=== PATIENT | male | born 1950 ===

== ENCOUNTER 2025-05-01 09:46 | Outpatient (AMB) | payer MEDICARE, SELFPAY ==
--- NOTE | 2025-05-01 09:51 | A.PHYSOV ---
Vital Signs 05/01/25 09:52 Height 5 ft 10 in Weight 195 lb BMI 28.0 Intake Visit Reasons: NPV TIRNITY REF SPINAL STENOSIS OF LUMBAR REGION Intake Note: Patient is a 75 year old male here for a new patient visit for spinal stenosis of lumbar region. Had xray at his chiropractic office. Metal Cutter Required: No Allergies No Known Allergies Allergy (Verified 05/01/25 09:55) HPI Comments Details: History of Present Illness The patient is a 75-year-old male presenting with spinal stenosis and associated musculoskeletal issues. I do believe he is mixing up spinal stenosis and scoliosis. He reports a history of spinal stenosis diagnosed after an x-ray revealed a twisted spine, attributed to altered gait following knee surgery. The patient denies experiencing back pain but reports nerve pain in the buttock, which may be related to spinal issues. The patient underwent a second knee replacement surgery in November, following a previous replacement four years ago that resulted in improper alignment. This misalignment caused muscle issues due to altered gait over three years. Post-surgery, the patient experiences knee pain and swelling, particularly after prolonged walking, but reports gradual improvement. The patient has a leg length discrepancy, with the right leg being shorter than the left, which does not cause significant discomfort. 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 The patient engages in regular physical activity, including gym workouts and stretching exercises, which he finds beneficial. Patient has been seeing a chiropractor twice a week for over 6 weeks without relief of his symptoms. As a pillow today at 12/27. I reviewed their bronchodilators no prior consultation. I reviewed the referring provider's no prior to consultation. Pain Description - Onset: Pain primarily post-knee replacement surgery. - Quality: Described as a charley horse in the thigh and buttock area. - Location: Primarily in the knee, radiating to the thigh and buttock. - Exacerbating factors: Prolonged walking and certain movements. - Relieving factors: Stretching exercises and rest. Results - Imaging: X-ray showed spinal stenosis and scoliosis. - Imaging: X-ray confirmed mild arthritis in the hip. The images were reviewed by me and I agree with the radiology report. [facility], [facility] Surgical History (Updated 05/01/25 @ 10:00 by Karma Vasquez MA) H/O shoulder surgery (Unknown) H/O: knee surgery (~11/2024) H/O: knee surgery (~2020) Social History (Updated 04/24/25 @ 15:42 by Karma Vasquez MA) Alcohol intake: current Patient Tobacco Use Status: Former Tobacco user Use of substances other than those prescribed or required for medical reasons: Unknown Review of Systems Narrative Review of Systems - Musculoskeletal: Reports knee pain and swelling post-surgery. Denies back pain. - Neurological: Reports nerve pain in the buttock. Denies numbness except in a specific area related to previous surgery. - General: Reports improvement in pain and function with exercise. Physical Exam Exam Exam: Physical Exam Lumbar Spine: Examination of his lumbar spine, there is no visible swelling or deformity. He is tender to lower lumbar facets. He is otherwise nontender. Full range of motion of his lumbar spine. He does have an increase in pain with facet loading particularly in his left thigh. Special Tests: Lhermittes sign was negative Heel Toe walk is normal Left straight leg raise: Positive left Right straight leg raise: Negative Special tests Herson test is negative Ganslen's test is negative SI Joint compression test negative Cynthia test negative Piriformis stretch is negative Lower Extremities: Full range of motion bilateral lower extremities. No calf pain or edema. Neuro: Sensation: Intact to lower extremities bilaterally Strength L2 (Psoas): 5/5 on the left and 5/5 on the right. L3 (Quads): 5/5 on the left and 5/5 on the right. L4 (Ant tibialis): 5/5 on the left and 5/5 on the right. L5 (EHL) 5/5 on the left and 5/5 on the right. S1 (Gastroc): 5/5 on the left and 5/5 on the right. DTR L4: (Patellar) Left 0 Right 0 S1: (Achilles) Left 1 Right 1 Babinski Downgoing No pathologic clonus. No involuntary movement. Vital Signs: BMI result Body Mass Index 28.0 Assessment & Plan Assessment & Plan (1) Lumbar radiculopathy: Code(s): M54.16 - Radiculopathy, lumbar region Category: Medical (2) Lumbar spondylosis: Code(s): M47.816 - Spondylosis without myelopathy or radiculopathy, lumbar region Category: Medical Plan Pain Management - Affect: Pain does not significantly impact mood or psychological wellbeing. - Analgesia: No regular pain medication use; occasional use of Advil if needed. - Adverse Effects: No adverse effects from pain medications reported. - Activities of Daily Living: Pain affects prolonged walking but is improving with exercise. - Aberrant Drug Related Behaviors: No signs of medication misuse or abuse. Plan Mr. Dickerson is a 75-year-old male seen in consultation today or lumbar radiculitis the left lower extremity. 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 He has also been using turmeric to decrease inflammation without relief his symptoms. At this point he has failed conservative treatment. I recommend open MRI of his lumbar spine as we are considering epidural injection versus surgery. Follow-up post MRI. Patient will continue his home exercise plan and medications as prescribed. We discussed the benefits of proper nutrition and exercise to maintain a healthy body weight to improve longevity and function. We also discussed the benefits of proper lifting techniques, core strengthening and proper posture. Thank you for allowing me to participate in the care of your patient. Orders: Orders MR lumbar spine wo con Today M51.16 - Intervertebral disc disorders with radiculopathy, lumbar region Coding Level of Care Code Tele New Pt Level 4 (06023) Diagnoses Lumbar radiculopathy M54.16 Lumbar spondylosis M47.816
[2025-05-01 09:52] VITALS: BMI 28.0
--- OUTSIDE RECORDS SUMMARY | 2025-05-01 11:08 | XMS_ITS | Clinical Summary ---
Author Organization [place] [address] [facility] Building Address [address] [place], [place] [address] [address] Phone Care Team Providers Care It Portfolio Manager Name Role Phone Iva Chavez NP Primary Care Provider [phone] Allergies No known active allergies Medications TURMERIC ORAL Take by mouth 2 (two) times a day. Active meloxicam (MOBIC) 15 mg tablet Take 1 tablet (15 mg total) by mouth 1 (one) time each day if needed for mild pain for up to 30 doses. 30 each 12/19/2024 10:13 AM EDT 5 Active Additional Information Patient not taking.Reason: Other, Reported on 04/02/2025 methocarbamoL (ROBAXIN) 750 mg tablet Take 1 tablet (750 mg total) by mouth every 6 (six) hours if needed for muscle spasms for up to 56 doses. 56 tablet 12/19/2024 10:13 AM EDT 5 Active Additional Information Patient not taking.Reason: Other, Reported on 04/02/2025 oxyCODONE (ROXICODONE) 5 mg immediate release tabletIndicati ons:S/P total knee arthroplasty, left Take 1 tablet (5 mg total) by mouth every 4 (four) hours if needed (Pain scale 1-3). Max Daily Amount: 30 mg 15 tablet 12/19/2024 10:13 AM EDT 5 Active Additional Information Patient not taking.Reason: Other, Reported on 04/02/2025 cyanocobalamin (VITAMIN B-12) 1,000 mcg tablet Take 1 tablet (1,000 mcg total) by mouth 1 (one) time each day. Active ALPRAZolam (XANAX) 0.5 mg tablet Take 1 tablet (0.5 mg total) by mouth 2 (two) times a day if needed for anxiety. Max Daily Amount: 1 mg 40 tablet 2 5 Active ezetimibe (ZETIA) 10 mg tablet Take 1 tablet (10 mg total) by mouth every other day. 15 each 5 5 10/07/19 26 Active ALPRAZolam (XANAX) 0.5 mg tablet Take 1 tablet (0.5 mg total) by mouth 2 (two) times a day if needed for anxiety. Max Daily Amount: 1 mg 40 tablet 2 5 04/02/20 25 Discontin ued(Reord er) Active Problems Problem Noted Date Diagnosed Date Left knee pain 12/14/2024 Hypercholesterolemia 09/26/2024 Anxiety disorder 08/02/2022 Encounters Date Type Department Care Team Description 04/09/2025 Telephone Internal Medicine - [address] [place] [address] Iva Chavez NP 04/04/2025 Results Follow-Up Internal Medicine - [address] [place] [phone] Barbara Martinez MA 04/02/2025 1:00 PM EDT Office Visit Internal Medicine - [address] [place] [address] Iva Chavez NP Anxiety disorder, unspecified type (Primary Dx); Hypercholesterolemia ; Immunization due; Spinal stenosis of lumbar region, unspecified whether neurogenic claudication present; Thrombocytosis; Long-term use of high-risk medication; Vitamin D deficiency; Thrombocytopenia (CMS/HCC V24) from Last 3 Months Immunizations Immunization Administration Dates Next Due Influenza trivalent, 0.5mL ( Fluad) 65yo and older 04/02/2025,03/28/2024,03/24/2022,2020,05/12/2018 Influenza trivalent, with preservative (Fluzone; Afluria) 6mo and older 04/23/2010 Influenza, Unspecified 03/20/2023 Surgical History Surgery Date Site/Laterality Comments KNEE SURGERY 04/20/2022 - 05/19/2022 Left L TKA APPENDECTOMY HERNIA REPAIR X5 ROTATOR CUFF REPAIR Bilateral TOTAL SHOULDER ARTHROPLASTY Left KNEE ARTHROSCOPY Bilateral COLONOSCOPY KNEE SURGERY 11/18/2024 - 12/17/2024 Left second knee replacement CARPAL TUNNEL RELEASE 06/20/2024 - 06/19/2025 Left Medical History Medical History Date Comments Anxiety disorder DX:Anxiety diso rder Hep C w/o coma, chronic (CMS/HCC V24, CMS/HCC V2 8) CURED 2018 WITH PO TX Thrombocytopenia (CMS/HCC V24) D X:Thrombocytopenia (HCC) Diverticulosis DX:Diverticulosi s Lyme disease DX:Lyme disease Babesiosis HX Hyperlipidemia DIET-CONTROLLED Peripheral neuropathy LEFT LEG History of blood transfusion 2018 X2 D/T BABESIOSIS Family History Medical History Relation Name Comments No Known Problems Brother 1 No Known Problems Brother 2 No Known Problems Brother 3 Heart failure Father Stroke Father Heart failure Mother Relation Name Status Comments Brother 1 Alive Brother 2 Alive Brother 3 Alive Father Mother Social History Tobacco Use Types Packs/Day Years Used Date Smoking Tobacco: Former Cigarettes 0.5 1 Smokeless Tobacco: Never Tobacco Cessation:Counseling Given: Not Answered Alcohol Use Standard Drinks/Week Comments Yes 21 (1 standard drink = 0.6 oz pu re alcohol) couple beers a day Interpersonal Safety Answer Date Record ed Physical Abuse Unrecognized value 12/17/2024 Verbal Abuse Unrecognized value 12/17/2024 Sex and Gender Information Value Date Recorded Sex Assigned at Male 12/17/2024 5:53 AM EDT Legal Sex Male 8:55 PM EST Gender Identity Male 12/17/2024 5:53 AM EDT Sexual Orientation Choose not to disclose 2024 5:53 AM EDT Obstetrics History Last Filed Vital Signs Vital Sign Reading Time Taken Comments Blood Pressure 138/88 04/02/2025 1:19 PM EDT Pulse 74 04/02/2025 1:19 PM EDT Temperature 36.7 C (98.1 F) 12/19/2024 7:25 AM EDT Respiratory Rate 16 12/19/2024 7:25 AM EDT Oxygen Saturation 95% 12/19/2024 7:25 AM EDT Inhaled Oxygen Concentration - - Weight 89.6 kg (197 lb 9.6 oz) 04/02/2025 1:19 P M EDT Height 177.8 cm (5' 10 ) 04/02/2025 1:19 PM EDT Body Mass Index 28.35 04/02/2025 1:19 PM EDT Plan of Treatment Upcoming Encounters Date Type Department Care Team (Late st Contact Info) Description 10/07/2025 1:30 PM EDT [facility] [address] [place], [place] [phone] Iva Chavez, JOSH [address] [place] [address] Health Maintenance Due Date Last Done Comments Medicare Annual Wellness Visit 07/15/2023 Social Influencers of Health Screening 07/15/2023 Depression Screening 06/20/2024 DTaP,Tdap,and Td Vaccines (1 - Tdap) 09/26/2025 Postponed from 1970 (Patient Refused) Falls Risk Assessment 12/19/2025 12/19/2024 Cholesterol Screening (Lipid Panel) 04/04/2030 04/04/2025, 09/26/2024, 08/09/2024, Additional history exists Colorectal Cancer Screening: Colonoscopy 12/19/2034 12/19/2024, 09/01/2016 COVID-19 Vaccine Discontinued 05/21/2021, 10/2020, 09/24/2020 Influenza Vaccine Completed 04/02/2025, , 04/25/2023, Additional history exists Abdominal Aortic Aneurysm (AAA) Screen Discontinued HIB Vaccines Aged Out No longer eligi ble based on patient's age to complete this topic HPV Vaccines Aged Out No longer eligi ble based on patient's age to complete this topic Hepatitis A Vaccines Discontinued Hepatitis B Vaccines Discontinued Hepatitis C Screening Discontinued IPV Vaccines Aged Out No longer eligi ble based on patient's age to complete this topic MMR Vaccines Aged Out No longer eligi ble based on patient's age to complete this topic Meningococcal ACWY Vaccine Aged Out N o longer eligible based on patient's age to complete this topic Meningococcal B Vaccine Aged Out No l onger eligible based on patient's age to complete this topic Pneumococcal Vaccine: 50+ Years Discontinued RSV Immunization Adult Patients Discontinued RSV Immunization Patients Under 20 months Aged Out No longer eligible based on patient's age to complete this topic Varicella Vaccines Aged Out No longer eligible based on patient's age to complete this topic Zoster Vaccines Discontinued Medical Devices Implanted Type Area Service Or Work Dispatcher Chief Device Identifier Shelf Expiration Date Model / Serial / Lot Cement Bone Surg Simplex Radiopq - [id number] Implanted:Qty : 1 on 12/17/2024 by Seng Alfaro MD at [facility] Bone Cement Left: Knee [employer] [id number] 04/19/2027 6190-06-20 0 / / [id number] Cement Bone Surg Simplex Radiopq - [id number] Implanted:Qty : 1 on 12/17/2024 by Seng Alfaro MD at [facility] Bone Cement Left: Knee [employer] [id number] 04/19/2027 6190-06-20 0 / / [id number] Cement Bone Surg Simplex Radiopq - [id number] Implanted:Qty : 1 on 12/17/2024 by Seng Alfaro MD at [facility] Bone Cement Left: Knee [employer] [id number] 04/19/2027 6190-06-20 0 / / [id number] Cement Bone Surg Simplex Radiopq - [id number] Implanted:Qty : 1 on 12/17/2024 by Seng Alfaro MD at [facility] Bone Cement Left: Knee [employer] 10/17/2026 6191 0 / / [id number] Knee Aug L/Rl Sz6 10mm - [id number] Implanted:Qty : 1 on 12/17/2024 by Seng Alfaro MD at [facility] Joints Knee Left: Knee [employer] [id number] 08/17/2025 5546-A-60 1 / / [id number] Knee Insrt Tib Baseplate Sz 6 - [id number] Implanted:Qty : 1 on 12/17/2024 by Seng Alfaro MD at [facility] Joints Knee Left: Knee [employer] [id number] 04/06/2029 5521-B-60 0 / / [id number] Knee Sys Total Ofst 6mm - [id number] Implanted:Qty : 1 on 12/17/2024 by Seng Alfaro MD at [facility] Joints Knee Left: Knee [employer] [id number] 05/21/2026 5570-S-06 0 / / [id number] Knee Stm Prsft 01y404 - [id number] Implanted:Qty : 1 on 12/17/2024 by Seng Alfaro MD at [facility] Joints Knee Left: Knee [employer] [id number] 04/14/2027 5566-S-01 4 / / [id number] Knee Fem Post Sz 5 5mm - [id number] Implanted:Qty : 1 on 12/17/2024 by Seng Alfaro MD at [facility] Knee Left: Knee [employer] [id number] 08/14/2029 5543-A-50 0 / / [id number] Knee Fem Post Sz 5 5mm - [id number] Implanted:Qty : 1 on 12/17/2024 by Seng Alfaro MD at [facility] Joints Knee Left: Knee [employer] [id number] 08/14/2029 5543-A-50 0 / / [id number] Knee Fem Dist Aug 15mm Sz 5 Lt - [id number] Implanted:Qty : 1 on 12/17/2024 by Seng Alfaro MD at [facility] Joints Knee Left: Knee [employer] [id number] 07/19/2027 5542-A-50 1 / / [id number] Knee Fem Dist Aug 15mm Sz 5 Lt - [id number] Implanted:Qty : 1 on 12/17/2024 by Seng Alfaro MD at [facility] Joints Knee Left: Knee [employer] [id number] 03/16/2027 5542-A-50 1 / / [id number] Knee Fem Cmpnt Sz 5 Lt - [id number] Implanted:Qty : 1 on 12/17/2024 by Seng Alfaro MD at [facility] Joints Knee Left: Knee [employer] [id number] 10/17/2028 5512-F-50 1 / / [id number] Knee Tib Insrt Ts+ X3 16mm Sz6 - [id number] Implanted:Qty : 1 on 12/17/2024 by Seng Alfaro MD at [facility] Joints Knee Left: Knee [employer] [id number] 04/05/2027 5537-G-61 6 / / [id number] Knee Stm Prsft 63z246 - [id number] Implanted:Qty : 1 on 12/17/2024 by Seng Alfaro MD at [facility] Knee Left: Knee [employer] [id number] 12/05/2027 5566-S-01 0 / / [id number] Knee Aug R/Ll Sz6 10mm - [id number] Implanted:Qty : 1 on 12/17/2024 by Seng Alfaro MD at [facility] [employer]s Knee Left: Knee [employer] [id number] 07/20/2027 5546-A-60 2 / / [id number] Explanted Type Area Service Or Work Dispatcher Chief Device Identifier Shelf Expiration Date Model / Serial / Lot Femur Explanted:Qty: 1 on 12/17/2024 by Seng Alfaro MD at [facility] Left: Knee [employer] XXXXXXX / [id number] / [id number] Tibia Explanted:Qty: 1 on 12/17/2024 by Seng Alfaro MD at [facility] Left: Knee [employer] XXXXX / [id number] / [id number] Tibial Insert Explanted:Qty: 1 on 12/17/2024 by Seng Alfaro MD at [facility] Left: Knee [employer] XXXXXX / [id number] / [id number] Procedures Procedure Name Priority Date/Time Associated Diagnosis Comments CBC WITH AUTO DIFFERENTIAL Routine 04/04/2025 9:07 AM EDT Thrombocytosis CBC AND DIFFERENTIAL Routine 04/04/2025 9:07 AM EDT Thrombocytosis DRUG ABUSE SCREEN 8A PANEL, URINE Routine 04/04/2025 9:07 AM EDT Long-term use of high-risk medication LIPID PANEL WITH REFLEX TO DIRECT LDL Routine 04/04/2025 9:07 AM EDT Hypercholesterolemi a VITAMIN D 25 HYDROXY Routine 04/04/2025 9:07 AM EDT Vitamin D deficiency VITAMIN B12 Routine 04/04/2025 9:07 AM EDT Thrombocytosis EXTERNAL COLONOSCOPY REPORT Routine 12/19/2024 11:17 AM EDT from Last 3 Months or Most Recently Relevant to Health Maintenance Results * (ABNORMAL) Lipid panel with reflex to direct LDL (04/04/2025 9:07 AM EDT) Cholesterol 217(H) 0 - 200 mg/dL LAB CHEMISTRY METHOD 04/04/2025 12:55 PM [facility] Triglycerides 72 0 - 150 mg/dL LAB CHEMISTRY METHOD 04/04/2025 12:55 PM [facility] HDL 69 >=40 mg/dL LAB CHEMISTRY METHOD 04/04/2025 12:55 PM [facility] LDL Calculated 134(H) 0 - 100 mg/dL LAB CHEMISTRY METHOD 04/04/2025 12:55 PM [facility] Comment:Estimated LDL Calcul ated using equation: Total cholesterol - HDL cholesterol - (Triglycerides/5) VLDL Cholesterol Jacob 14.4 mg/dL LAB CHEMISTRY METHOD 04/04/2025 12:55 PM [facility] Non HDL Chol. (LDL+VLDL) 148(H) <145 mg/dL LAB CHEMISTRY METHOD 04/04/2025 12:55 PM [facility] Chol/HDL Ratio 3.1 0.0 - 4.4 LAB CHEMISTRY METHOD 04/04/2025 12:55 PM [facility] Blood Venous blood specimen / Unknown Venipuncture / Unknown 04/04/2025 9:07 AM EDT 04/04/2025 9:07 AM EDT Iva Chavez TENNIS PLAYER LAB BLOOD ORDERABLES Final Resu lt [facility] [address] [place] [address], * (ABNORMAL) Drug abuse screen 8a panel, urine (04/04/2025 9:07 AM EDT) Amphetamine Screen, Ur Negative Negative LAB CHEMISTRY METHOD 3:[address] [facility] Comment:Certain OTC medicati ons containing ephedrine, phenylephrine, pseudoephedrine and phenylpropanolamine can cause false positive results. Barbiturate Screen, Ur Negative Negative LAB CHEMISTRY METHOD 5 3:[address] [facility] Benzodiazepine Screen, Ur Positive(A ) Negative LAB CHEMISTRY METHOD 5 3:[address] [facility] Cocaine Screen, Ur Negative Negative LAB CHEMISTRY METHOD 5 3:[address] [facility] Opiate Screen, Ur Negative Negative LAB CHEMISTRY METHOD 5 3:[address] [facility] Cannabinoid (THC) Screen, Ur Positive(A ) Negative LAB CHEMISTRY METHOD 5 3:[address] [facility] Comment:Specimens from patie nts taking pantoprazole sodium (Protonix) have been shown to produce false positive results. Oxycodone Screen, Ur Negative Negative LAB CHEMISTRY METHOD 5 3:[address] [facility] Fentanyl, Ur Negative Negative LAB CHEMISTRY METHOD 5 3:[address] [facility] Urine Urine specimen obtained by clean catch procedure / Unknown Non-blood Collection / Unknown 04/04/2025 9:07 AM EDT 04/04/2025 9:[address] [facility] - 04/04/2025 3:59 PM EDT Assay cutoffs: Amphetamines 1000 ng/mL Barbiturates 200 ng/mL Benzodiazepines 200 ng/mL Cocaine 300 ng/mL Fentanyl 1 ng/mL Opiates 300 ng/mL Oxycodone 100 ng/mL THC 50 ng/mL Semi-quantitative assay for screening purposes only. Unconfirmed screening result should not be used for non-medical purposes. *ALTERNATE METHOD CONFIRMATION DONE UPON REQUEST ONLY* us Iva Chavez NP LAB URINE ORDERABLES Final Resu lt [facility] [address] [place] [address], [place] [phone] * CBC auto differential (04/04/2025 9:07 AM EDT) WBC 5.7 4.8 - 10.8 K/mcL LAB HEMETOLOGY METHOD 04/04/2025 12:[address] [facility] RBC 4.80 4.50 - 5.50 M/mcL LAB HEMETOLOGY METHOD 04/04/2025 12:[address] [facility] Hemoglobin 14.9 13.5 - 17.5 g/dL LAB HEMETOLOGY METHOD 04/04/2025 12:[address] [facility] Hematocrit 46.1 42.0 - 54.0 % LAB HEMETOLOGY METHOD 04/04/2025 12:[address] [facility] MCV 95.2 79.0 - 98.0 FL LAB HEMETOLOGY METHOD 04/04/2025 12:[address] [facility] MCH 30.8 27.0 - 32.0 pcg LAB HEMETOLOGY METHOD 04/04/2025 12:[address] [facility] MCHC 32.3 32.0 - 37.0 g/dL LAB HEMETOLOGY METHOD 04/04/2025 12:24 PM [facility] RDW 12.9 11.0 - 15.0 % LAB HEMETOLOGY METHOD 04/04/2025 12:24 PM [facility] Platelets 204 130 - 400 K/mcL LAB HEMETOLOGY METHOD 04/04/2025 12:24 PM [facility] MPV 10.8 7.0 - 11.0 FL LAB HEMETOLOGY METHOD 04/04/2025 12:24 PM [facility] NRBC 0.0 <1.0 % LAB HEMETOLOGY METHOD 04/04/2025 12:24 PM [facility] NRBC Absolute 0.00 <0.10 K/mcL LAB HEMETOLOGY METHOD 04/04/2025 12:24 PM [facility] Neutrophils Relative 45.1 % LAB HEMETOLOGY METHOD 04/04/2025 12:24 PM [facility] Lymphocytes Relative 39.8 % LAB HEMETOLOGY METHOD 04/04/2025 12:24 PM [facility] Monocytes Relative 12.2 % LAB HEMETOLOGY METHOD 04/04/2025 12:24 PM [facility] Eosinophils Relative 2.1 % LAB HEMETOLOGY METHOD 04/04/2025 12:24 PM [facility] Basophils Relative 0.3 % LAB HEMETOLOGY METHOD 04/04/2025 12:24 PM [facility] Immature Granulocytes Relative 0.5 % LAB HEMETOLOGY METHOD 04/04/2025 12:24 PM [facility] Neutrophils Absolute 2.58 1.50 - 7.00 K/mcL LAB HEMETOLOGY METHOD 04/04/2025 12:24 PM [facility] Lymphocytes Absolute 2.28 1.00 - 5.00 K/[facility] HEMETOLOGY METHOD 04/04/2025 12:[address] [facility] Monocytes Absolute 0.70 0.20 - 1.00 K/[facility] HEMETOLOGY METHOD 04/04/2025 12:[address] [facility] Eosinophils Absolute 0.12 0.00 - 0.50 K/[facility] HEMETOLOGY METHOD 04/04/2025 12:[address] [facility] Basophils Absolute 0.02 0.00 - 0.20 K/[facility] HEMETOLOGY METHOD 04/04/2025 12:[address] [facility] Immature Granulocytes Absolute 0.03 0.00 - 0.03 K/[facility] HEMETOLOGY METHOD 04/04/2025 12:[address] [facility] Blood Venous blood specimen / Unknown Venipuncture / Unknown 04/04/2025 9:07 AM EDT 04/04/2025 9:07 AM EDT Iva Chavez [employer]ENN[employer]ER LAB BLOOD ORDERABLES Final Resu lt [facility] [address] [place] [address], * (ABNORMAL) Vitamin D 25 hydroxy (04/04/2025 9:07 AM EDT) Vit D, 25-Hydroxy 22.8(L) 30.0 - 80.0 ng/mL LAB CHEMISTRY METHOD 04/04/2025 1:[address] [facility] Blood Venous blood specimen / Unknown Venipuncture / Unknown 04/04/2025 9:07 AM EDT 04/04/2025 9:07 AM EDT Iva Chavez [employer]ENN[employer]ER LAB BLOOD ORDERABLES Final Resu lt [facility] [address] [place] [address], [place] [phone] * Vitamin B12 (04/04/2025 9:07 AM EDT) Vitamin B-12 339 250 - 900 pcg/mL LAB CHEMISTRY METHOD 04/04/2025 1:[address] [facility] Blood Venous blood specimen / Unknown Venipuncture / Unknown 04/04/2025 9:07 AM EDT 04/04/2025 9:07 AM EDT Iva Chavez NP LAB BLOOD ORDERABLES Final Resu lt [facility] [address] [place] [address], [place] [phone] * External Colonoscopy Report (12/19/2024 11:17 AM EDT) Anatomical Region Laterality Modality Endoscopy Historical Provider GI~PROCEDURE ORDERABLES F inal Result from Last 3 Months or Most Recently Relevant to Health Maintenance Insurance [employer] - [place] MEDICARE ADVANTAGE Advance Directives * Full Code - Confirmed (Latest Code Status on File) Date Activated Date Inactivated Comments 12/17/2024 1:39 PM 12/19/2024 12:[address] [facility] was ascertained in the following way: Code status discussion: per living will or healthcare instructions To update the patient's code status, place a code status order. Do not modify or discontinue any currently active code status orders. * Full Code - Confirmed Date Activated Date Inactivated Comments 12/17/2024 5:56 AM 12/17/2024 1:[address] [facility] was ascertained in the following way: Code status discussion: per living will or healthcare instructions To update the patient's code status, place a code status order. Do not modify or discontinue any currently active code status orders. Care Teams It Portfolio Manager Relationship Specialty Start Date End Date Iva Chavez NP [address] [place] [id number] PCP - General 07/09/22
== END 2025-05-01 10:50 | disposition home or self-care (01) ==
PROVIDERS: PCP Nurse Practitioner Primary Care; Visit Provider Physician Assistant
DX: M54.16 Radiculopathy, lumbar region (principal); M47.816 Spondylosis without myelopathy or radiculopathy, lumbar region
CPT/HCPCS: 99204

== ENCOUNTER → 2025-05-01 09:46 | Outpatient (BNVA) | payer MEDICARE, SELFPAY | PROVIDERS: PCP Nurse Practitioner Primary Care; Visit Provider Physician Assistant | DX: M47.816 Spondylosis without myelopathy or radiculopathy, lumbar region (principal); M54.16 Radiculopathy, lumbar region | CPT/HCPCS: 99202 ==

== ENCOUNTER 2025-06-17 14:11 | Outpatient (AMB) | payer MEDICARE, SELFPAY ==
--- NOTE | 2025-06-17 14:13 | A.PHYSOV ---
Vital Signs 06/17/25 14:14 Height 5 ft 10 in Weight 195 lb BMI 28.0 Intake Visit Reasons: MRI followup Intake Note: Patient is a 75 year old male here today for MRI review. Recreational Therapy Technician Required: No Allergies No Known Allergies Allergy (Verified 06/17/25 14:15) HPI Comments Details: History of Present Illness The patient is a 75 year old male presenting for evaluation of left-sided back, hip, and leg pain. He reports pain primarily in his left hip, knee, and thigh, which he describes as severe enough to make walking difficult. The pain is intermittent, with some days being manageable and others being significantly worse. The patient has a history of a left knee replacement and notes the knee remains swollen, sore, stiff, and numb. He reports he has been walking with an altered gait for approximately four years. He has received multiple cortisone injections in his knee in the past. Recent imaging of his back revealed multiple findings, including a disc bulge at L3-4 on the left hitting a nerve, severe left lateral recess stenosis from a disc fragment, moderate degenerative disc disease, multiple bulging discs, and arthritis. He currently sees a chiropractor who advised against surgery but was amenable to a steroid injection. Pain Description - Location: Pain is localized to the left side, involving the back, hip, knee, and thigh. - Quality: Patient describes the pain as severe ( hurts like hell ) and reports associated stiffness and numbness in the leg. - Timing: The pain is intermittent, with good days and bad days. - Interference with function: The pain makes it difficult to walk and has caused an altered gait for approximately four years. Results - Imaging of Lumbar Spine (type not specified): - L3-L4: Disc bulge hitting the nerve on the left. - L3-L4: Severe left lateral recess stenosis secondary to a disc fragment. - General: Findings include moderate degenerative disc disease, bulging discs throughout the spine, and arthritis. [facility] Surgical History H/O shoulder surgery (Unknown) H/O: knee surgery (~11/2024) H/O: knee surgery (~2020) Social History Alcohol intake: current Patient Tobacco Use Status: Former Tobacco user Review of Systems Narrative Review of Systems - Musculoskeletal: Reports pain in the back, left hip, and left knee. - Reports swelling, soreness, stiffness, and numbness in the left leg and knee area post-arthroplasty. - Neurological: Reports numbness in the left leg. - All other systems were not discussed and are therefore negative. Physical Exam Exam Exam: Physical Exam Lumbar Spine: Examination of his lumbar spine, there is no visible swelling or deformity. He is tender to lower lumbar facets. He is otherwise nontender. Full range of motion of his lumbar spine. He does have an increase in pain with facet loading particularly in his left thigh. Special Tests: Lhermittes sign was negative Heel Toe walk is normal Left straight leg raise: Positive left Right straight leg raise: Negative Special tests Herson test is negative Ganslen's test is negative SI Joint compression test negative Cynthia test negative Piriformis stretch is negative Lower Extremities: Full range of motion bilateral lower extremities. No calf pain or edema. Neuro: Sensation: Intact to lower extremities bilaterally Strength L2 (Psoas): 5/5 on the left and 5/5 on the right. L3 (Quads): 5/5 on the left and 5/5 on the right. L4 (Ant tibialis): 5/5 on the left and 5/5 on the right. L5 (EHL) 5/5 on the left and 5/5 on the right. S1 (Gastroc): 5/5 on the left and 5/5 on the right. DTR L4: (Patellar) Left 0 Right 0 S1: (Achilles) Left 1 Right 1 Babinski Downgoing No pathologic clonus. No involuntary movement. Vital Signs: BMI result Body Mass Index 28.0 Assessment & Plan Assessment & Plan (1) Lumbar radiculopathy: Code(s): M54.16 - Radiculopathy, lumbar region Category: Medical (2) Lumbar spondylosis: Code(s): M47.816 - Spondylosis without myelopathy or radiculopathy, lumbar region Category: Medical Plan Pain Management - Analgesia: The patient has a history of receiving cortisone injections in his knee. - Activities of Daily Living: Pain interferes with his ability to walk. - He has an upcoming trip to [place] where he hopes to play golf, walk, and swim. - On less painful days, he is able to perform activities such as clearing his driveway. - Aberrant Drug Related Behaviors: No aberrant behaviors were discussed. Plan Patient was informed and verbally consented to the use of an ambient scribe for clinic note documentation during this visit. 1. Left Lumbar Radiculopathy The patient's left hip, thigh, and leg pain is attributed to lumbar spine pathology identified on recent imaging, specifically an L3-4 disc bulge with severe left lateral recess stenosis from a disc fragment impinging on the nerve. A left-sided lumbar epidural steroid injection was recommended to address the nerve pain, with an expected goal of at least 50% pain reduction for three to six months. The patient has agreed to proceed with this injection, which will be ordered and scheduled. 2. Degenerative Disc Disease Of Lumbar Region The patient's underlying condition is moderate degenerative disc disease with bulging discs and arthritis, which is a progressive, age-related process. Conservative management is the primary strategy, with the hope that interventions like the planned epidural injection will manage symptoms effectively. It was discussed that the disc fragment causing nerve compression could potentially be reabsorbed by the body over time, which may lead to pain resolution without surgical intervention. Surgery is to be avoided unless all conservative measures fail and pain becomes intolerable. Discussion Notes I explained to the patient that his left hip and leg pain are likely caused by a disc bulge and severe stenosis at L3-4 in his lumbar spine, which is pressing on a nerve. I reviewed that this is a degenerative, [id number] condition that will progress over time. I recommended a lumbar epidural steroid injection to reduce inflammation and pain, with the goal of achieving at least 50% pain relief for 3-6 months. We discussed the procedure, including the risk of temporary, severe pain if the needle contacts the nerve. I offered the alternative of having the procedure with sedation, but the patient declined this option to avoid additional fees from an anesthesiologist and the hospital. I emphasized that surgery should be considered a last resort, as conservative management may provide sufficient relief and allow time for the disc fragment to potentially be reabsorbed by the body. The patient understood the plan and consented to proceed with the injection. Patient Instructions - We will schedule you for a lumbar epidural steroid injection to help with your left-sided back and leg pain. - You can choose to schedule the injection at a time that works best for you, such as before your trip to [place] in August. - The purpose of this injection is to reduce your pain and help you become more functional. - Be aware that the injection can be briefly painful if the needle touches the nerve. - You have chosen to have the procedure without sedation (being put to sleep). - Our office will contact you to schedule the procedure. - A copy of your back imaging report has been provided for you to share with your chiropractor. Coding Level of Care Code Est Pt Level 3 (97946) Diagnoses Lumbar radiculopathy M54.16 Lumbar spondylosis M47.816
[2025-06-17 14:14] VITALS: BMI 28.0
--- OUTSIDE RECORDS SUMMARY | 2025-06-17 16:29 | XMS_ITS | Clinical Summary ---
Author Organization [place] [address] [facility] Building Address [address] [place], [place] [address] [address] Phone Care Team Providers Care System Support Developer Name Role Phone Iva Chavez NP Primary Care Provider Allergies No known active allergies Medications TURMERIC [...] 04/02/2025 oxyCODONE (ROXICODONE) 5 mg immediate release tabletIndicatio ns:S/P total knee arthroplasty, left Take 1 tablet [...] Daily Amount: 1 mg 40 tablet 2 Active ezetimibe (ZETIA) 10 mg tablet Take 1 tablet (10 mg total) by mouth every other day. 15 each 5 5 10/07/19 26 Active Active Problems Problem Noted Date Diagnosed Date Left knee pain 12/14/2024 Hypercholesterolemia 09/26/2024 Anxiety disorder 08/02/2022 Encounters Date Type Department Care Team Description 05/29/2025 11:22 AM EST - 05/29/2025 11:59 PM [facility] Hospital Encounter [facility] MRI [address] [place] [address] Intervertebral disc disorders with radiculopathy, lumbar region Discharge Disposition: Home or Self Care 04/09/2025 [facility] [address] Iva Chavez NP 04/04/2025 Results Follow-Up Internal Medicine - [address] [address] Barbara Martinez [place] 04/02/2025 1:00 PM EDT [facility] [address] Iva Chavez NP Anxiety disorder, unspecified type (Primary Dx); Hypercholesterolemia; Immunization due; Spinal stenosis of lumbar region, [...] PO TX Thrombocytopenia (CMS/HCC V24) D X:Thrombocytopenia ([facility]) Diverticulosis DX:Diverticulosi s Lyme disease DX:Lyme disease [...] not to disclose 2024 5:53 AM EDT Last Filed Vital Signs Vital Sign Reading [...] PM EDT [facility] [address] [place], [place] [phone] Iva Chavez, JOSH [address] [place] [address] Health Maintenance Due Date Last Done Comments Non-Opioid Controlled Substance Agreement 1950 Medicare Annual Wellness Visit 07/15/2023 Social Influencers of Health Screening 07/15/2023 Depression Screening 06/20/2024 DTaP,Tdap,and Td Vaccines (1 - Tdap) 09/26/2025 Postponed from 1970 (Patient Refused) Falls Risk Assessment 12/19/2025 12/19/2024 Drug Screen 04/04/2026 04/04/2025 Cholesterol Screening (Lipid Panel) 04/04/2030 04/04/2025, 09/26/2024, [...] Vaccines Discontinued Medical Devices Implanted Type Area [employer] Cook Device Identifier Shelf Expiration Date Model / Serial / Lot Cement Bone Surg Simplex Radiopq - [id number] Implanted:Qty : 1 on 12/17/2024 by Seng Alfaro MD at [facility] Bone Cement Left: Knee [employer] [id number] 04/19/2027 6190-06-20 0 / / [id number] Cement Bone Surg Simplex Radiopq - [id number] Implanted:Qty : 1 on 12/17/2024 by Seng Alfaro MD at [facility] Bone Cement Left: Knee [employer] [id number] 04/19/2027 6190-06-20 0 / / [id number] Cement Bone Surg Simplex Radiopq - [id number] Implanted:Qty : 1 on 12/17/2024 by Seng Alfaro MD at [facility] Bone Cement Left: Knee [employer] [id number] 04/19/2027 6190-06-20 0 / / [id number] Cement Bone Surg Simplex Radiopq - [id number] Implanted:Qty : 1 on 12/17/2024 by Seng Alfaro MD at [facility] Bone Cement Left: Knee [employer] 10/17/2026 6191 0 / / [id number] Knee Aug L/Rl Sz6 10mm - [id number] Implanted:Qty : 1 on 12/17/2024 by Seng Alfaro MD at [facility] Joints Knee Left: Knee [employer] [id number] 08/17/2025 5546-A-60 1 / / [id number] Knee Insrt Tib Baseplate Sz 6 - [id number] Implanted:Qty : 1 on 12/17/2024 by Seng Alfaro MD at [facility] Joints Knee Left: Knee [employer] [id number] 04/06/2029 5521-B-60 0 / / [id number] Knee Sys Total Ofst 6mm - [id number] Implanted:Qty : 1 on 12/17/2024 by Seng Alfaro MD at [facility] Knee Left: Knee [employer] [id number] 05/21/2026 5570-S-06 0 / / [id number] Knee Stm Prsft 42i807 - [id number] Implanted:Qty : 1 on 12/17/2024 by Seng Alfaor MD at [facility] Knee Left: Knee [employer] [id number] 04/14/2027 5566-S-01 4 / / [id number] Knee Fem Post Sz 5 5mm - [id number] Implanted:Qty : 1 on 12/17/2024 by Seng Alfaro MD at [facility] Knee Left: Knee [employer] [id number] 08/14/2029 5543-A-50 0 / / [id number] Knee Fem Post Sz 5 5mm - [id number] Implanted:Qty : 1 on 12/17/2024 by Seng Alfaro MD at [facility] Joints Knee Left: Knee [employer] [id number] 08/14/2029 5543-A-50 0 / / [id number] Knee Fem Dist Aug 15mm Sz 5 Lt - [id number] Implanted:Qty : 1 on 12/17/2024 by Seng Alfaro MD at [facility] Joints Knee Left: Knee [employer] [id number] 07/19/2027 5542-A-50 1 / / [id number] Knee Fem Dist Aug 15mm Sz 5 Lt - [id number] Implanted:Qty : 1 on 12/17/2024 by Seng Alfaro MD at [facility] Joints Knee Left: Knee [employer] [id number] 03/16/2027 5542-A-50 1 / / [id number] Knee Fem Cmpnt Sz 5 Lt - [id number] Implanted:Qty : 1 on 12/17/2024 by Seng Alfaro MD at [facility] Joints Knee Left: Knee [employer] [id number] 10/17/2028 5512-F-50 1 / / [id number] Knee Tib Insrt Ts+ X3 16mm Sz6 - [id number] Implanted:Qty : 1 on 12/17/2024 by Seng Alfaro MD at [facility] Joints Knee Left: Knee [employer] [id number] 04/05/2027 5537-G-61 6 / / [id number] Knee Stm Prsft 45i934 - [id number] Implanted:Qty : 1 on 12/17/2024 by Seng Alfaro MD at [facility] Joints Knee Left: Knee [employer] [id number] 12/05/2027 5566-S-01 0 / / [id number] Knee Aug R/Ll Sz6 10mm - [id number] Implanted:Qty : 1 on 12/17/2024 by Seng Alfaro MD at [facility] Joints Knee Left: Knee [employer] [id number] 07/20/2027 5546-A-60 2 / / [id number] Explanted Type Area [employer] Cook Device Identifier Shelf Expiration Date Model / Serial / Lot Femur Explanted:Qty: 1 on 12/17/2024 by Seng Alfaro MD at [facility] Left: Knee [employer] XXXXXXX / [id number] / XXXXX Tibia Explanted:Qty: 1 on 12/17/2024 by Seng Alfaro MD at [facility] Left: Knee [employer] XXXXX / [id number] / [id number] Tibial Insert Explanted:Qty: 1 on 12/17/2024 by Seng Alfaro MD at [facility] Left: Knee [employer] XXXXXX / [id number] / [id number] Procedures Procedure Name Priority Date/Time Associated Diagnosis Comments MR LUMBAR SPINE WO CONTRAST Routine 05/29/2025 12:43 PM EST Intervertebral disc disorders with radiculopathy, lumbar region CBC WITH AUTO DIFFERENTIAL Routine 04/04/2025 9:07 [...] Recently Relevant to Health Maintenance Results * MR Lumbar Spine wo Contrast (05/29/2025 12:43 PM EST) Anatomical Region Laterality Modality L-spine, Spine Magnetic Resonan ce 06/04/2025 12:0 5 PM EST Impressions 06/04/2025 12:21 PM EST Moderate levoscoliosis, with multilevel degenerative changes which are most prominent along the concave margin of the scoliotic curve. Details above. -------- FINAL REPORT -------- Dictated By: Rolo Hirsch Dictated Date: 06/04/2025 12:05 ET Assigned Physician: Rolo Hirsch Reviewed and Electronically Signed By: Rolo Hirsch Signed Date: 06/04/2025 12:21 ET Workstation ID: [id number] Transcribed By: Self Edit Transcribed Date: 06/04/2025 12:05 ET Narrative 06/04/2025 12:21 PM EST PROCEDURE: MRI of the lumbar spine without contrast. TECHNIQUE: Multiplanar multisequence MRI of the lumbar spine without intravenous contrast administration. HISTORY: Intervertebral disc disorders w/ radiculopathy COMPARISON: None. FINDINGS: Mild paraspinous muscular atrophy. No other paraspinous soft tissue findings. There is a moderate levoscoliosis centered at L2-3. Mild Baastrup's disease. Scattered Modic endplate changes, most prominent at L2-3. No acute compression deformity. Normal position of the conus at T12. Lumbar disc levels: L1-2: Moderate disc space height loss and endplate irregularity. Small anterior endplate osteophytes. Minimal disc bulge eccentric to the right. Slight narrowing of the right neural foramen. No spinal stenosis. L2-3: Severe right-sided disc space height loss with moderate endplate irregularity. Small anterior endplate osteophytes. Minimal disc osteophyte complex eccentric to the right. Minimal bilateral facet arthropathy. Mild spinal stenosis. No significant foraminal stenosis. L3-4: Moderate disc space height loss eccentric to the left with moderate endplate irregularity and small anterior endplate osteophytes. Small symmetric disc osteophyte complex with a small amount of superiorly projecting extruded disc material in the left central region which causes severe left lateral recess stenosis. Mild left greater than right facet arthropathy. Moderate right and mild left ligamentum flavum hypertrophy. Moderate spinal stenosis. Moderate left foraminal stenosis. L4-5: Mild endplate irregularity. Minimal symmetric disc bulge. Mild bilateral facet arthropathy and ligamentum flavum hypertrophy. No significant spinal or foraminal stenosis. L5-S1: Mild anterolisthesis. Mild posterior disc space height loss and mild diffuse endplate irregularity. Moderate bilateral facet arthropathy with mild bilateral ligamentum flavum hypertrophy and widening of the facet joints suggestive of hypermobility. Moderate left lateral recess stenosis. No spinal stenosis. A small amount of superiorly extruded disc material in the left foraminal zone results in moderate left foraminal stenosis. Procedure Note Rolo Hirsch MD - 06/04/2025 PROCEDURE: MRI of the lumbar spine without contrast. TECHNIQUE: Multiplanar multisequence MRI of the lumbar spine withoutintravenous contrast administration. HISTORY: Intervertebral disc disorders w/ radiculopathy COMPARISON: None. FINDINGS: Mild paraspinous muscular atrophy. No other paraspinous soft tissuefindings. There is a moderate levoscoliosis centered at L2-3. Mild Baastrup'sdisease. Scattered Modic endplate changes, most prominent at L2-3. Noacute compression deformity. Normal position of the conus at T12. Lumbar disc levels: L1-2: Moderate disc space height loss and endplate irregularity. Smallanterior endplate osteophytes. Minimal disc bulge eccentric to the right.Slight narrowing of the right neural foramen. No spinal stenosis. L2-3: Severe right-sided disc space height loss with moderate endplateirregularity. Small anterior endplate osteophytes. Minimal discosteophyte complex eccentric to the right. Minimal bilateral facetarthropathy. Mild spinal stenosis. No significant foraminal stenosis. L3-4: Moderate disc space height loss eccentric to the left with moderateendplate irregularity and small anterior endplate osteophytes. Smallsymmetric disc osteophyte complex with a small amount of superiorlyprojecting extruded disc material in the left central region which causessevere left lateral recess stenosis. Mild left greater than right facetarthropathy. Moderate right and mild left ligamentum flavum hypertrophy.Moderate spinal stenosis. Moderate left foraminal stenosis. L4-5: Mild endplate irregularity. Minimal symmetric disc bulge. Mildbilateral facet arthropathy and ligamentum flavum hypertrophy. Nosignificant spinal or foraminal stenosis. L5-S1: Mild anterolisthesis. Mild posterior disc space height loss andmild diffuse endplate irregularity. Moderate bilateral facet arthropathywith mild bilateral ligamentum flavum hypertrophy and widening of thefacet joints suggestive of hypermobility. Moderate left lateral recessstenosis. No spinal stenosis. A small amount of superiorly extruded discmaterial in the left foraminal zone results in moderate left foraminalstenosis. IMPRESSION: Moderate levoscoliosis, with multilevel degenerative changes which aremost prominent along the concave margin of the scoliotic curve. Detailsabove. -------- FINAL REPORT -------- Dictated By: Rolo Hirsch Dictated Date: 06/04/2025 12:05 ET Assigned Physician: Rolo Hirsch Reviewed and Electronically Signed By: Rolo Hirsch Signed Date: 06/04/2025 12:21 ET Workstation ID: [id number] Transcribed By: Self Edit Transcribed Date: 06/04/2025 12:05 ET us [facility] MRI PROCEDURES Final Resul t * (ABNORMAL) Lipid panel with reflex to direct LDL (04/04/2025 9:07 AM EDT) Cholesterol 217(H) 0 - 200 mg/dL LAB CHEMISTRY METHOD 04/04/2025 12:55 PM EDT [facility] Triglycerides 72 0 - 150 mg/dL LAB CHEMISTRY METHOD 04/04/2025 12:55 PM EDT [facility] HDL 69 >=40 mg/dL LAB CHEMISTRY METHOD 04/04/2025 12:[address] [facility] LDL Calculated 134(H) 0 - 100 mg/dL LAB CHEMISTRY METHOD 04/04/2025 12:55 PM EDT [facility] Comment:Estimated LDL Calcul ated using equation: Total cholesterol - HDL cholesterol - (Triglycerides/5) VLDL Cholesterol Jacob 14.4 mg/dL LAB CHEMISTRY METHOD 04/04/2025 12:55 PM T [facility] Non HDL Chol. (LDL+VLDL) 148(H) <145 mg/dL LAB CHEMISTRY METHOD 04/04/2025 12:55 PM T [facility] Chol/HDL Ratio 3.1 0.0 - 4.4 LAB CHEMISTRY METHOD 04/04/2025 12:55 PM T [facility] Blood Venous blood specimen / Unknown Venipuncture / Unknown 04/04/2025 9:07 AM EDT 04/04/2025 9:07 AM EDT Iva Chavez NP LAB BLOOD ORDERABLES Final Resu lt [facility] [address] [place] [address], [place] [phone] * (ABNORMAL) Drug abuse screen 8a panel, urine (04/04/2025 9:07 AM EDT) Amphetamine Screen, Ur Negative Negative LAB CHEMISTRY METHOD 3:59 PM EDT [facility] Comment:Certain OTC medicati ons containing ephedrine, phenylephrine, pseudoephedrine and phenylpropanolamine can cause false positive results. Barbiturate Screen, Ur Negative Negative LAB CHEMISTRY METHOD 5 3:59 PM EDT [facility] Benzodiazepine Screen, Ur Positive(A ) Negative LAB CHEMISTRY METHOD 3:59 PM EDT [facility] Cocaine Screen, Ur Negative Negative LAB CHEMISTRY METHOD 5 3:59 PM EDT [facility] Opiate Screen, Ur Negative Negative LAB CHEMISTRY METHOD 3:[address] [facility] Cannabinoid (THC) Screen, Ur Positive(A ) Negative LAB CHEMISTRY METHOD 3:59 PM EDT [facility] Comment:Specimens from patie nts taking pantoprazole sodium (Protonix) have been shown to produce false positive results. Oxycodone Screen, Ur Negative Negative LAB CHEMISTRY METHOD 5 3:[address] [facility] Fentanyl, Ur Negative Negative LAB CHEMISTRY METHOD 3:[address] [facility] Urine Urine specimen obtained by clean catch procedure / Unknown Non-blood Collection / Unknown 04/04/2025 9:07 AM EDT 04/04/2025 9:07 AM EDT Narrative [facility] - 04/04/2025 3:59 PM EDT [...] NP LAB URINE ORDERABLES Final Resu lt [facility] [address] [place] [address], * CBC auto differential (04/04/2025 9:07 AM EDT) WBC 5.7 4.8 - 10.8 K/mcL LAB HEMETOLOGY METHOD 04/04/2025 12:24 PM EDT [facility] RBC 4.80 4.50 - 5.50 M/mcL LAB HEMETOLOGY METHOD 04/04/2025 12:24 PM EDT [facility] Hemoglobin 14.9 13.5 - 17.5 g/dL LAB HEMETOLOGY METHOD 04/04/2025 12:24 PM EDT [facility] Hematocrit 46.1 42.0 - 54.0 % LAB HEMETOLOGY METHOD 04/04/2025 12:24 PM EDT [facility] MCV 95.2 79.0 - 98.0 FL LAB HEMETOLOGY METHOD 04/04/2025 12:24 PM EDT [facility] MCH 30.8 27.0 - 32.0 pcg LAB HEMETOLOGY METHOD 04/04/2025 12:24 PM EDT [facility] MCHC 32.3 32.0 - 37.0 g/dL LAB HEMETOLOGY METHOD 04/04/2025 12:24 PM EDT [facility] RDW 12.9 11.0 - 15.0 % LAB HEMETOLOGY METHOD 04/04/2025 12:24 PM EDT [facility] Platelets 204 130 - 400 K/mcL LAB HEMETOLOGY METHOD 04/04/2025 12:24 PM EDT [facility] MPV 10.8 7.0 - 11.0 FL LAB HEMETOLOGY METHOD 04/04/2025 12:24 PM EDT [facility] NRBC 0.0 <1.0 % LAB HEMETOLOGY METHOD 04/04/2025 12:24 PM EDT [facility] NRBC Absolute 0.00 <0.10 K/mcL LAB [facility] Neutrophils Relative 45.1 % LAB HEMETOLOGY METHOD 04/04/2025 12:24 PM EDT [facility] Lymphocytes Relative 39.8 % LAB HEMETOLOGY METHOD 04/04/2025 12:24 PM EDT [facility] Monocytes Relative 12.2 % LAB HEMETOLOGY METHOD 04/04/2025 12:[address] [facility] Eosinophils Relative 2.1 % LAB HEMETOLOGY METHOD 04/04/2025 12:[address] [facility] Basophils Relative 0.3 % LAB HEMETOLOGY METHOD 04/04/2025 12:[address] [facility] Immature Granulocytes Relative 0.5 % LAB HEMETOLOGY METHOD 04/04/2025 12:[address] [facility] Neutrophils Absolute 2.58 1.50 - 7.00 K/mcL LAB HEMETOLOGY METHOD 04/04/2025 12:[address] [facility] Lymphocytes Absolute 2.28 1.00 - 5.00 K/mcL LAB HEMETOLOGY METHOD 04/04/2025 12:24 PM EDT [facility] Monocytes Absolute 0.70 0.20 - 1.00 K/mcL LAB HEMETOLOGY METHOD [facility] Eosinophils Absolute 0.12 0.00 - 0.50 K/mcL LAB HEMETOLOGY METHOD 04/04[facility]2025 [facility] Basophils Absolute 0.02 0.00 - 0.20 K/mcL LAB HEMETOLOGY METHOD 04/04/2025 12:24 PM EDT [facility] Immature Granulocytes Absolute 0.03 0.00 - 0.03 K/mcL LAB HEMETOLOGY METHOD 04/04/2025 12:24 PM EDT [facility] Blood Venous blood specimen / Unknown Venipuncture / Unknown 04/04/2025 9:07 AM EDT 04/04/2025 9:07 AM EDT [facility] ONLINE AFFILIATE MARKETING MANAGER LAB BLOOD ORDERABLES Final Resu lt Performing Organization Address City/[facility]/ZIP Co de Phone Number [facility] [address] [place] [address], [place] [phone] * (ABNORMAL) Vitamin D 25 hydroxy (04/04/2025 9:07 AM EDT) Vit D, 25-Hydroxy 22.8(L) 30.0 - 80.0 ng/mL LAB CHEMISTRY METHOD 04/04/2025 1:59 PM EDT [facility] Blood Venous blood specimen / Unknown Venipuncture / Unknown 04/04/2025 9:07 AM EDT 04/04/2025 9:07 AM EDT Iva Chavez ONLINE AFFILIATE MARKETING MANAGER LAB BLOOD ORDERABLES Final Resu lt Performing Organization Address City/[facility]/ZIP Co de Phone Number [facility] [address] [place] [address], [place] [phone] * Vitamin B12 (04/04/2025 9:07 AM EDT) Vitamin B-12 339 250 - 900 pcg/mL LAB CHEMISTRY METHOD 04/04/2025 1:17 PM EDT [facility] Blood Venous blood specimen / Unknown Venipuncture / Unknown 04/04/2025 9:07 AM EDT 04/04/2025 9:07 AM EDT Iva Chavez ONLINE AFFILIATE MARKETING MANAGER LAB BLOOD ORDERABLES Final [facility] [address] [place] [address], [place] [phone] * External Colonoscopy Report (12/19/2024 11:17 AM [...] currently active code status orders. Care Teams System Support Developer Relationship Specialty Start Date End Date Iva Chavez NP [address] [place] [address] [facility] - General 07/09/22
== END 2025-06-17 14:34 | disposition home or self-care (01) ==
LOC: HO.HPHYS 14:11
PROVIDERS: PCP Nurse Practitioner Primary Care; Visit Provider Physician Assistant
DX: M54.16 Radiculopathy, lumbar region (principal); M47.816 Spondylosis without myelopathy or radiculopathy, lumbar region
CPT/HCPCS: 99213

== ENCOUNTER → 2025-06-17 14:11 | Outpatient (BNVA) | payer MEDICARE, SELFPAY | PROVIDERS: PCP Nurse Practitioner Primary Care; Visit Provider Physician Assistant | DX: M47.26 Other spondylosis with radiculopathy, lumbar region (principal); M48.061 Spinal stenosis, lumbar region without neurogenic claudication | CPT/HCPCS: 99212 ==